=== PATIENT | female | born 1970 | race Caucasian/White ===

== ENCOUNTER 2018-04-17 11:06 | Emergency (ER) | payer OTHER ==
[2018-04-17 11:19] VITALS: BP 154/65; PULSE 77; TEMP 98.2; BMI 54.8
--- NOTE | 2018-04-17 12:12 | PDOC ---
History of Present Illness - General Chief Complaint: Chest Pain Stated Complaint: CHEST PAIN - History of Present Illness Initial Comments: Justina Retana is a 48yo woman with a PMH of a-fib and anxiety/depression who presents with sensation of fluttering just above the sternal notch this morning. She states that this feeling started around 10am, and she was very concerned that it was her a-fib. She does also noted that she has anxiety, and when she first noticed the fluttering she became very anxious. She took 2 clonapin with some improvement in her anxiety but continued to have the fluttering sensation. Ms Retana does have a prior episode of a-fib w/ RVR and was concerned that was causing the fluttering. Ms Retana denies any shortness of breath, chest pain, change in medication, fever /chills, diaphoresis, dizziness, or other associated symptoms. She states that this feeling was similar to her palpitations from a-fib, but that has previously been mid-sternal and this was much higher in location. She states that she cannot tell whether she is feeling anxiety or palpitations, and she has no way to check at home. Past History - Past Medical History Allergies/Adverse Reactions: Allergies Allergy/AdvReac Type Severity Reaction Status Date / Time Sulfa (Sulfonamide Allergy Mild Verified 04/17/18 11:18 Antibiotics) Coconut Allergy Uncoded 04/17/18 11:18 sulfa AdvReac Uncoded 04/17/18 11:18 Home Medications: Ambulatory Orders Sertraline HCl [Zoloft -] 50 mg PO DAILY 04/25/13 Dronedarone HCl [Multaq] 400 mg PO BID #60 tablet 04/27/13 Diltiazem HCl [Cardizem LA] 240 mg PO DAILY #30 tab.sr.24h 12/18/13 Aspirin [ASA -] 81 mg PO DAILY 06/06/16 clonazePAM [KlonoPIN] 0.5 mg PO DAILY PRN 06/06/16 Anemia: No Asthma: Yes Cancer: No Cardiac Disorders: Yes (a-fib) CVA: No COPD: No CHF: No Dementia: No Diabetes: No GI Disorders: Yes (CELIAC?) Disorders: Yes (URINARY REFLUX REPAIR R) HTN: No Hypercholesterolemia: No Liver Disease: No Psychiatric Problems: Yes (anxiety, depression) Seizures: No Thyroid Disease: No Other medical history: maryse [place] - Surgical History Abdominal Surgery: No Appendectomy: No Cardiac Surgery: No Cholecystectomy: Yes Lung Surgery: No Neurologic Surgery: No Orthopedic Surgery: No - Immunization History Immunization Up to Date: Yes - Suicide/Smoking/Psychosocial Hx Smoking History: Never smoked Have you smoked in the past 12 months: No If you are a former smoker, when did you quit?: 18 years ago Hx Alcohol Use: No Drug/Substance Use Hx: No Substance Use Type: None Hx Substance Use Treatment: No Review of Systems - Review of Systems Comments:: General: No fevers, no chills, no weight or appetite change, no malaise HEENT: No changes in vision, no changes in hearing, no congestion, no sore throat CV: No chest pain, +palpitations, no LE edema Pulm: No SOB, no cough, no wheezing GI: No nausea or vomiting, no change in bowel habits, no melena : No frequency, no urgency, no dysuria Musc: No back pain, no joint swelling, no recent injury Skin: No rash, no lesions, no erythema Endo: No excessive thirst, no heat/cold intolerance Heme: No unusual bruising or bleeding, no swollen glands Neuro: No syncope, no numbness/tingling, no focal weakness Vasc: No claudication Psych: No recent change in mood, no SI or HIj. +frequent anxiety *Physical Exam - Vital Signs Last Vital Signs Temp Pulse Resp BP Pulse Ox 98.2 F 77 18 154/65 99 04/17/18 11:16 04/17/18 11:16 04/17/18 11:16 04/17/18 11:16 04/17/18 11:16 - Physical Exam Comments: General: Comfortable, no acute distress, obese, appears stated age HEENT: PERRL, EOMI, MMM, voice normal, normal neck ROM, no LAD Cards: RRR, no murmur appreciated, no TTP on chest wall Pulm: Comfortable on room air, clear to auscultation bilaterally Abd: Soft, nontender, nondistended : No CVA tenderness Ext: Atraumatic. No LE edema. ROM intact. Strength 5/5 and equal bilaterally Vasc: Extremities WWP. Skin: Normal color, no rashes or lesions Neuro: A&Ox3, CN grossly intact, normal speech, motor/sensory grossly intact and symmetric Psych: Mood appropriate to situation Moderate Sedation - Procedure Monitoring Vital Signs: Procedure Monitoring Vital Signs Temperature 98.2 F 04/17/18 11:16 Pulse Rate 77 04/17/18 11:16 Respiratory Rate 18 04/17/18 11:16 Blood Pressure 154/65 04/17/18 11:16 O2 Sat by Pulse Oximetry (%) 99 04/17/18 11:16 ED Treatment Course - LABORATORY CBC & Chemistry Diagram: 04/17/18 12:29 04/17/18 12:29 Medical Decision Making - Medical Decision Making 04/17/18 12:09 Justina Retana is a 48yo woman with a PMH of a-fib and anxiety/depression who presents with sensation of fluttering just above the sternal notch this morning. She was concerned that she was in a-fib w/ RVR and presented for evaluation. - In NSR with HR in 70's during exam, no abnormalities noted on exam - EKG completed on arrival. In NSR w/ HR 81, normal axis, no ST changes - Given cardiac history and complaint of chest discomfort, will check CBC, CMP, mag, phos, trop to r/o cardiac pathology - Reports cough, daughter w/ URI. Will order CXR to r/o infections causes of discomfort 04/17/18 13:18 - Labs reviewed, no concerns - CXR to be completed 04/17/18 13:54 - Pt feels improved, reassured by labs and EKG. Feels ready to go home at this point - Plan to cancel CXR as Ms Retana is feeling better, no continued cough or concern for acute abnormality on xray - Will discharge home with PMD follow up Discussed with Dr Martin. Ursula Talley PGY1 *DC/Admit/Observation/Transfer Diagnosis at time of Disposition: Palpitations - Discharge Dispostion Disposition: HOME Condition at time of disposition: Stable Decision to Admit order: No - Referrals Referrals: Rayo Yanes [Primary Care Provider] - - Patient Instructions Printed Discharge Instructions: DI for Palpitations Additional Instructions: Discharge Instructions: - You were seen in the emergency department for palpitations. - You had blood tests and a heart test (EKG) which were all normal. Your heart was beating at a normal rate and rhythm. There was no sign of atrial fibrillation while you were in the emergency department. - Continue to take all of your medications as previously prescribed - Make an appointment to see your regular doctor within the next week for follow up. You may wish to also see your publishing specialist if you are concerned about your diagnosis of a-fib, but all of your tests were normal while at the hospital. - Seek immediate medical care if you have continued palpitations, racing heart, chest pain, shortness of breath, or any other medical emergency. - Post Discharge Activity
[2018-04-17 12:43] LABS: BASO % 0.7 % (0-2.0); EOS % 0.4 % (0-4.5); HEMATOCRIT 37.6 % (32.4-45.2); HEMOGLOBIN 12.7 GM/dL (10.7-15.3); LYMPH % 14.8 % (8-40); MCH 28.1 pg (25.7-33.7); MCHC 33.7 g/dl (32.0-36.0); MEAN CELL VOLUME 83.4 fl (80-96); MEAN PLT VOLUME 8.3 fl (7.5-11.1); MONO % 5.5 % (3.8-10.2); NEUT % 78.6 % (42.8-82.8); PLATELET COUNT 308 K/MM3 (134-434); RBC 4.51 M/mm3 (3.60-5.2); RDW 13.8 % (11.6-15.6); WHITE BLOOD COUNT 9.1 K/mm3 (4.0-10.0)
[2018-04-17 13:15] LABS: ALK PHOS 90 U/L (45-117); ANION GAP 9 MMOL/L (8-16); BILIRUBIN,TOTAL 0.4 mg/dL (0.2-1); BLOOD UREA NITROGEN 16 mg/dL (7-18); CALCIUM 8.6 mg/dL (8.5-10.1); CHLORIDE 106 mmol/L (98-107); CO2 26 mmol/L (21-32); GLUCOSE,RANDOM 103 mg/dL (74-106); MAGNESIUM 1.8 mg/dL (1.8-2.4); PHOSPHOROUS 3.3 mg/dL (2.5-4.9); POTASSIUM 4.5 mmol/L (3.5-5.1); SGOT/AST 28 U/L (15-37); SGPT/ALT 17 U/L (13-61); SODIUM 141 mmol/L (136-145); TOT PROT 7.1 g/dl (6.4-8.2)
--- NOTE | 2018-04-17 13:58 | PDOC ---
Attending Attestation - Resident Resident Name: GerriUrsula - ED Attending Attestation I have performed the following: I have examined & evaluated the patient, The case was reviewed & discussed with the resident, I agree w/resident's findings & plan, Exceptions are as noted - HPI HPI: 04/17/18 14:02 The patient is a 48 year old female, with a significant past medical history of anxiety and pAfib, who presents to the emergency department with palpitations. Pt states that she felt a "flutter" in her upper chest this morning. The episode started about 11AM and lasted until just after she arrived to the ER. Pt denies any chest pain or pressure. Denies SOB. Pt states that she has this sensation every time she is in afib but also gets a similar sensation whenever she gets anxious. Pt took two klonopin prior to arrival and now feels much better. She denies recent fevers, chills, headache or dizziness. She denies recent nausea, vomit, diarrhea or constipation. She denies recent dysuria, frequency, urgency or hematuria. Pt states that she is currently asymptomatic. Allergies: Sulfa, coconut Past surgical history: None reported. Primary Care Physician: Dr. Yanes 04/17/18 14:04 - Physicial Exam PE: 04/17/18 14:04 "GENERAL: Awake, alert, and fully oriented, in no acute distress. HEAD: No signs of trauma EYES: PERRLA, EOMI, sclera anicteric, conjunctiva clear ENT: Auricles normal inspection, hearing grossly normal, nares patent, oropharynx clear without exudates. Moist mucosa NECK: Nontender, no stepoffs, Normal ROM, supple, no lymphadenopathy, JVD, or masses LUNGS: Breath sounds equal, clear to auscultation bilaterally. No wheezes, and no crackles HEART: Regular rate and rhythm, normal S1 and S2, no murmurs, rubs or gallops ABDOMEN: Soft, nontender, normoactive bowel sounds. No guarding, no rebound. No masses EXTREMITIES: Normal range of motion, no edema. No clubbing or cyanosis. No cords, erythema, or tenderness NEUROLOGICAL: Cranial nerves II through XII intact. 5/5 strength and sensation in all extremities, Normal speech, normal gait, normal cerebellar function SKIN: Warm, Dry, normal turgor, no rashes or lesions noted. - Medical Decision Making 04/17/18 14:04 48 F with palpitations this morning, now resolved. EKG shows NSR with no evidence of arrhythmia or ischemia. Suspect anxiety vs pAfib that converted spontaneously. - Labs wnl Pt is well appearing, with normal vitals. Clinically stable for DC at this time. I discussed the physical exam findings, ancillary test results and final diagnoses with the patient. I answered all of the patient's questions. The patient was satisfied with the care received and felt comfortable with the discharge plan and treatment plan. The patient agrees to follow up with the primary care physician within 24-72 hours.
--- NOTE | 2018-04-17 18:29 | EKG ---
Test Reason : Blood Pressure : / mmHG Vent. Rate : 081 BPM Atrial Rate : 081 BPM P-R Int : 154 ms QRS Dur : 094 ms QT Int : 402 ms P-R-T Axes : 062 031 047 degrees QTc Int : 466 ms NORMAL SINUS RHYTHM WITH SINUS ARRHYTHMIA NORMAL ECG WHEN COMPARED WITH ECG OF 06-JUN-2016 14:43, NO SIGNIFICANT CHANGE WAS FOUND Confirmed by CAMERON CHRISTIAN MD ([id number]) on 04/17/2018 6:29:21 PM Referred By: Confirmed By:CAMERON CHRISTIAN MD
== END 2018-04-17 14:05 | disposition home or self-care (01) ==
LOC: JER 11:06
DX: I48.91 Unspecified atrial fibrillation (principal); R00.2 Palpitations; F41.8 Other specified anxiety disorders; F32.9 Major depressive disorder, single episode, unspecified; Z87.19 Personal history of other diseases of the digestive system
CPT/HCPCS: 36415; 80053; 83735; 84100; 84484; 85025; 93005; 93010; 99283-25

== ENCOUNTER 2018-05-22 06:00 | Observation (INO) | payer OTHER ==
[2018-05-22] MEDS ORDERED: dilTIAZem HCL 50 MG/10 ML - 10 ML VIAL IVPUSH ONE ×2 (06:27→06:55)
[2018-05-22 06:35] LABS: BASO % 1.6 % (0-2.0); EOS % 0.1 % (0-4.5); HEMATOCRIT 37.6 % (32.4-45.2); HEMOGLOBIN 12.8 GM/dL (10.7-15.3); LYMPH % 21.2 % (8-40); MCH 28.4 pg (25.7-33.7); MCHC 34.1 g/dl (32.0-36.0); MEAN CELL VOLUME 83.1 fl (80-96); MEAN PLT VOLUME 7.7 fl (7.5-11.1); MONO % 4.8 % (3.8-10.2); NEUT % 72.3 % (42.8-82.8); PLATELET COUNT 329 K/MM3 (134-434); RBC 4.52 M/mm3 (3.60-5.2); RDW 13.8 % (11.6-15.6)
[2018-05-22] MEDS ORDERED: dilTIAZem HCL 50 MG/10 ML - 10 ML VIAL ONE (06:38)
[2018-05-22 06:50] VITALS: BMI 64.5
--- NOTE | 2018-05-22 06:51 | PDOC ---
History of Present Illness - General Chief Complaint: Irregular Heart Beat Stated Complaint: VOMITING,COMPLICATIONS Time Seen by Provider: 05/22/18 06:26 History Source: Patient Exam Limitations: No Limitations - History of Present Illness Initial Comments: Pt is a 48 yo F, with PMH of A-fib (past episodes of RVR, last episode June 2017), asthma, and anxiety, who is presenting with palpitations since 1 am this morning. Pt states she ate a slice of pizza late in the evening, which gave her a feeling of indigestion. Starting around 1 am, she noticed palpitations, and took her home dose of cardizem (240 mg PO), which did not relieve the palpitations. She then had 2 episodes of NBNB vomiting, with no associated chest pain or diaphoresis. She currently complains only of palpitations. Pt denies any recent fevers/chills, headache, vision changes, syncope, chest pain, SOB, abdominal pain, urinary symptoms, diarrhea/constipation, or leg swelling. Social: Pt denies any cigarette, alcohol, or drug use. Pt denies any recent travel or sick contacts. Surgical: cholecystectomy, ureter reflux repair (childbirth) Family: no relevant history. 05/22/18 07:10 Past History - Travel Traveled outside of the country in the last 30 days: No Close contact w/someone who was outside of country & ill: No - Past Medical History Allergies/Adverse Reactions: Allergies Allergy/AdvReac Type Severity Reaction Status Date / Time Sulfa (Sulfonamide Allergy Mild Verified 05/22/18 06:50 Antibiotics) Coconut Allergy Uncoded 05/22/18 06:50 Home Medications: Ambulatory Orders Dronedarone HCl [Multaq] 400 mg PO BID #60 tablet 04/27/13 Diltiazem HCl [Cardizem LA] 240 mg PO DAILY #30 tab.sr.24h 12/18/13 Aspirin [ASA -] 81 mg PO DAILY 06/06/16 clonazePAM [KlonoPIN] 0.5 mg PO DAILY PRN 06/06/16 Escitalopram Oxalate [Lexapro -] 10 mg PO DAILY 05/22/18 Norethindrone-E.estradiol-Iron [Microgestin Fe 1-20 Tablet] 1 each PO DAILY Anemia: No Asthma: Yes Cancer: No Cardiac Disorders: Yes (a-fib) CVA: No COPD: No CHF: No Dementia: No Diabetes: No GI Disorders: Yes (CELIAC?) Disorders: Yes (URINARY REFLUX REPAIR R) HTN: No Hypercholesterolemia: No Liver Disease: No Psychiatric Problems: Yes (anxiety, depression) Seizures: No Thyroid Disease: No - Surgical History Abdominal Surgery: No Appendectomy: No Cardiac Surgery: No Cholecystectomy: Yes Lung Surgery: No Neurologic Surgery: No Orthopedic Surgery: No - Immunization History Immunization Up to Date: Yes - Suicide/Smoking/Psychosocial Hx Smoking History: Unknown if ever smoked Have you smoked in the past 12 months: No If you are a former smoker, when did you quit?: 18 years ago Information on smoking cessation initiated: No Hx Alcohol Use: No Drug/Substance Use Hx: No Substance Use Type: None Hx Substance Use Treatment: No *Physical Exam - Vital Signs Last Vital Signs Temp Pulse Resp BP Pulse Ox 99.6 F 85 18 152/63 95 05/22/18 06:02 05/22/18 06:02 05/22/18 06:02 05/22/18 06:02 05/22/18 06:02 Moderate Sedation - Procedure Monitoring Vital Signs: Procedure Monitoring Vital Signs Temperature 99.6 F 05/22/18 06:02 Pulse Rate 85 05/22/18 06:02 Respiratory Rate 18 05/22/18 06:02 Blood Pressure 152/63 05/22/18 06:02 O2 Sat by Pulse Oximetry (%) 95 05/22/18 06:02 ED Treatment Course - LABORATORY CBC & Chemistry Diagram: 05/22/18 06:29 05/22/18 06:29 - ADDITIONAL ORDERS Additional order review: 05/22/18 06:29 RBC 4.52 MCV 83.1 MCHC 34.1 RDW 13.8 MPV 7.7 Neutrophils % 72.3 Lymphocytes % 21.2 D Monocytes % 4.8 Eosinophils % 0.1 Basophils % 1.6 - Medications Given in the ED: ED Medications Discontinued Medications Generic Name Dose Route Start Last Admin Trade Name Freq PRN Reason Stop Dose Admin Diltiazem HCl 10 mg 05/22/18 06:27 05/22/18 06:40 Cardizem Injection - IVPUSH 05/22/18 06:28 10 mg ONCE ONE Administration Medical Decision Making - Medical Decision Making Pt was seen at bedside, also will be seen by attending Dr. Stubbs. Pt presenting with palpitations since 1 am this morning. Pt states she ate a slice of pizza late in the evening, which gave her a feeling of indigestion. Starting around 1 am, she noticed palpitations, and took her home dose of cardizem (240 mg PO), which did not relieve the palpitations. She then had 2 episodes of NBNB vomiting , with no associated chest pain or diaphoresis. She currently complains only of palpitations. Pt denies any recent fevers/chills, headache, vision changes, syncope, chest pain, SOB, abdominal pain, urinary symptoms, diarrhea/ constipation, or leg swelling. Vitals stable, pt afebrile. Pt in NAD, normal body habitus. PE showed pt alert and oriented. tablet repair generally intact, muscular strength and sensation intact. Eyes PERRLA, EOMI. Oropharynx without erythema or exudates, no LAD b/l. No nasal congestion, hearing intact. Clear heart sounds, S1/S2, no JVD, b/l pedal edema, or heart murmur. Clear lung sounds, no respiratory distress, wheezes, crackles, or accessory muscle use. No abdominal or CVA tenderness to palpation, no rebound, no guarding. Abdomen soft, non-distended, and with normoactive bowel sounds. Skin without jaundice or rash. Considering A-fib RVR 2/2 dehydration, dietary changes/indigestion, stress/ anxiety, infection, electrolyte abnormalities, ACS, . Unlikely PE as O2 saturation 100% on RA, no SOB, no recent surgeries/travel, no leg swelling. Ordered work-up including CBC, CMP, coags, cardiac profile, serum test. Provided 1 L IV NS and 10 mg IV diltiazem for improvement of dehydration and tachycardia. Will continue to reassess pt and monitor for symptomatic improvement. ECG: NSR, intervals WNL. No TWIs or significant ST segment changes. No significant changes from prior ECG. 05/22/18 07:07 *DC/Admit/Observation/Transfer - Referrals Referrals: Marshall Wesley MD [Primary Care Provider] - - Patient Instructions - Post Discharge Activity
[2018-05-22] MEDS ORDERED: SODIUM CHLORIDE 0.9% 500 ML INFUS.BAG IV ONE (06:55)
--- NOTE | 2018-05-22 06:55 | PDOC ---
Attending Attestation - Resident Resident Name: Tequila Shipman - ED Attending Attestation I have performed the following: I have examined & evaluated the patient, The case was reviewed & discussed with the resident, I agree w/resident's findings & plan - HPI HPI: 05/22/18 06:51 Pt comes with rapid afib and a feeling of palpitations in her chest. She is compliant with her cartia QAM and her amiodarone BID. Last night she was late to take her amiodarone, as she was out late. She also didn't eat anything between lunch and midnight. Pt was likely dehydrated and stressed which may have caused her to go into rapid afib. - Physicial Exam PE: 05/22/18 06:53 Afebrile. No Chest pain. Pt has irregularly irreg heart sounds. She has no appreciable murmur (though she tells us that she has one) Pt has no abd pain and no flank pain. No leg swelling and her lungs are clear. - Medical Decision Making 05/22/18 06:54 Pt will be hydrated and treated with diltiazem IV and PO and labs were sent. She will be signed out to the day team. Dr. Juarez is her retail loan originator assistant.
[2018-05-22] MEDS ORDERED: FAMOTIDINE 20 MG/50 ML IVPB 20 MG/50 ML MG IVPB ONE ×2 (07:06→08:16)
[2018-05-22 07:10] LABS: INR 1.02 (0.83-1.09)
[2018-05-22 07:48] LABS: ALBUMIN 3.3 g/dl (3.4-5.0); ALK PHOS 70 U/L (45-117); ANION GAP 8 MMOL/L (8-16); BILIRUBIN,TOTAL 0.2 mg/dL (0.2-1); BLOOD UREA NITROGEN 15 mg/dL (7-18); CHLORIDE 105 mmol/L (98-107); CO2 26 mmol/L (21-32); CREATININE 0.9 mg/dL (0.55-1.3); GLUCOSE,RANDOM 96 mg/dL (74-106); POTASSIUM 4.1 mmol/L (3.5-5.1); SGOT/AST 9 U/L (15-37); SGPT/ALT 19 U/L (13-61); SODIUM 138 mmol/L (136-145); TOT PROT 7.9 g/dl (6.4-8.2)
--- NOTE | 2018-05-22 08:47 | PDOC ---
*Physical Exam - Vital Signs Last Vital Signs Temp Pulse Resp BP Pulse Ox 98.1 F 89 18 155/76 100 05/22/18 08:04 05/22/18 08:04 05/22/18 08:04 05/22/18 08:04 05/22/18 08:04 ED Treatment Course - LABORATORY CBC & Chemistry Diagram: 05/22/18 06:29 05/22/18 06:29 - ADDITIONAL ORDERS Additional order review: Laboratory Results 05/22/18 05/22/18 05/22/18 06:29 06:29 06:29 PT with INR 12.00 INR 1.02 Sodium 138 Potassium 4.1 Chloride 105 Carbon Dioxide 26 Anion Gap 8 BUN 15 Creatinine 0.9 Creat Clearance w eGFR > 60 Random Glucose 96 Calcium 9.0 Total Bilirubin 0.2 AST 9 L ALT 19 Alkaline Phosphatase 70 Creatine Kinase 58 Troponin I < 0.02 Total Protein 7.9 Albumin 3.3 L Serum , Qual Negative 05/22/18 06:29 RBC 4.52 MCV 83.1 MCHC 34.1 RDW 13.8 MPV 7.7 Neutrophils % 72.3 Lymphocytes % 21.2 D Monocytes % 4.8 Eosinophils % 0.1 Basophils % 1.6 - RADIOLOGY Radiology Studies Ordered: Category Date Time Status CXRPORT [CHEST X-RAY PORTABLE*] [RAD] Stat Radiology 05/22/18 08:32 Ordered - Medications Given in the ED: ED Medications Discontinued Medications Generic Name Dose Route Start Last Admin Trade Name Freq PRN Reason Stop Dose Admin Diltiazem HCl 10 mg 05/22/18 06:27 05/22/18 06:40 Cardizem Injection - IVPUSH 05/22/18 06:28 10 mg ONCE ONE Administration Diltiazem HCl 240 mg 05/22/18 06:46 05/22/18 08:44 Cardizem Cd - PO 05/22/18 06:47 240 mg ONCE ONE Administration Diltiazem HCl 10 mg 05/22/18 06:55 05/22/18 07:10 Cardizem Injection - IVPUSH 05/22/18 06:56 10 mg ONCE ONE Administration Famotidine/Sodium Chloride 20 mg in 50 mls @ 100 mls/hr 05/22/18 07:06 08:19 Pepcid 20 Mg Premixed Ivpb - IVPB 05/22/18 07:35 100 mls/hr ONCE ONE Administration Sodium Chloride 1,000 ml 05/22/18 06:55 05/22/18 06:40 Normal Saline - IV 05/22/18 06:56 1,000 ml ONCE ONE Administration Medical Decision Making - Medical Decision Making 05/22/18 08:[address] Shipman. Patient is 48F with history of afib here today with palpitations. HR in 130s, given dilt 10mg iv and home dose of 240mg po. Now stable. Pending labs. CBC, CMP normal. Trop neg. Preg neg. CXR added. EKG shows periods of sinus rhythm with small runs of afib. No st elevations/ depressions. Normal axis. Normal significant t wave abnormalities. HR now in 90s. PC NETWORK TECHNICIAN for Dr Wesley paged, [phone]. *DC/Admit/Observation/Transfer Diagnosis at time of Disposition: Atrial fibrillation with RVR - Discharge Dispostion Condition at time of disposition: Stable Decision to Admit order: Yes - Referrals Referrals: Marshall Wesley MD [Primary Care Provider] - - Patient Instructions - Post Discharge Activity
[2018-05-22] MEDS ORDERED: clonazePAM 0.5 MG TABLET PO PRN (09:34)
[2018-05-22] MEDS ORDERED: ASPIRIN 81 MG CHEWABLE TABLETS ONE (09:51)
[2018-05-22] MEDS ORDERED: ESCITALOPRAM OXALATE 10 MG TABLET (FP) ONE (09:51)
[2018-05-22] MEDS ORDERED: NORETHINDRONE E ESTRADIOL IRON PO SCH (10:00)
[2018-05-22] MEDS ORDERED: ESCITALOPRAM OXALATE 10 MG TABLET (FP) PO SCH (10:00)
[2018-05-22] MEDS ORDERED: DRONEDARONE HCL 400 MG TAB (FP) PO SCH (10:00)
[2018-05-22] MEDS ORDERED: ASPIRIN 81 MG CHEWABLE TABLETS PO SCH (10:00)
--- NOTE | 2018-05-22 10:08 | CON.CARD ---
Consult Consult Specialty:: cardiology - Past Medical History Cardio/Vascular: Yes: AFIB Pulmonary: Yes: Bronchitis ...LMP: 05/19/18 Psych: Yes: Anxiety, Depression, Panic - Past Surgical History Past Surgical History: Yes: Cholecystectomy - Alcohol/Substance Use Hx Alcohol Use: No History of Substance Use: reports: None - Smoking History Smoking history: Unknown if ever smoked Have you smoked in the past 12 months: No If you are a former smoker, when did you quit?: 18 years ago Home Medications - Allergies Allergies/Adverse Reactions: Allergies Allergy/AdvReac Type Severity Reaction Status Date / Time Sulfa (Sulfonamide Allergy Mild Verified 05/22/18 06:50 Antibiotics) Coconut Allergy Uncoded 05/22/18 06:50 - Home Medications Home Medications: Ambulatory Orders Dronedarone HCl [Multaq] 400 mg PO BID #60 tablet 04/27/13 Diltiazem HCl [Cardizem LA] 240 mg PO DAILY #30 tab.sr.24h 12/18/13 Aspirin [ASA -] 81 mg PO DAILY 06/06/16 clonazePAM [KlonoPIN] 0.5 mg PO DAILY PRN 06/06/16 Escitalopram Oxalate [Lexapro -] 10 mg PO DAILY 05/22/18 Norethindrone-E.estradiol-Iron [Microgestin Fe 1-20 Tablet] 1 each PO DAILY Family Disease History - Family Disease History Family Disease History: Other: Grandparent, Mother Vital Signs: Vital Signs Temperature 98.1 F 05/22/18 08:04 Pulse Rate 89 05/22/18 08:04 Respiratory Rate 18 05/22/18 08:04 Blood Pressure 155/76 05/22/18 08:04 O2 Sat by Pulse Oximetry (%) 100 05/22/18 08:04 - Other Data Labs, Other Data: CBC, BMP 05/22/18 06:29 05/22/18 06:29 INR, PTT INR 1.02 (0.83-1.09) 05/22/18 06:29 Troponin, BNP 05/22/18 06:29 Troponin I < 0.02 Troponin, BNP 05/22/18 06:29 Troponin I < 0.02 Problem List - Problems (1) Anxiety disorder Code(s): F41.9 - ANXIETY DISORDER, UNSPECIFIED (2) Morbid obesity Code(s): E66.01 - MORBID (SEVERE) OBESITY DUE TO EXCESS CALORIES (3) PAF (paroxysmal atrial fibrillation) Assessment/Plan: Presently in NSR; EKG shows NSR with frequent APCs. Restart Multaq 400 mg bid. Increase diltiazem CD from 240 to 360 mg daily. Follow by plate and frame filter operator (Dr. Hawthorne); not on systemic anticoagulation. When discharged, will be followed by our office, and for f/u with Dr. Hawthorne for medication adjustment, discussion of possible ablation therapy. F/u TSH. Code(s): I48.0 - PAROXYSMAL ATRIAL FIBRILLATION (4) Palpitation Code(s): R00.2 - PALPITATIONS (5) Panic attack Code(s): F41.0 - PANIC DISORDER [EPISODIC PAROXYSMAL ANXIETY] (6) Hyperlipidemia Assessment/Plan: F/u lipid panel (LDL >140 mg/DL in 2013). Code(s): E78.5 - HYPERLIPIDEMIA, UNSPECIFIED
--- NOTE | 2018-05-22 10:42 | PDOC ---
*Physical Exam - Vital Signs Last Vital Signs Temp Pulse Resp BP Pulse Ox 98.1 F 89 18 155/76 100 05/22/18 08:04 05/22/18 08:04 05/22/18 08:04 05/22/18 08:04 05/22/18 08:04 - Physical Exam General Appearance: Yes: Nourished Respiratory/Chest: positive: Lungs Clear, Normal Breath Sounds Cardiovascular: positive: Regular Rhythm, S1, S2, Irregularly Irregular ED Treatment Course - LABORATORY CBC & Chemistry Diagram: 05/22/18 06:29 05/22/18 06:29 - ADDITIONAL ORDERS Additional order review: Laboratory Results 05/22/18 05/22/18 05/22/18 06:29 06:29 06:29 PT with INR 12.00 INR 1.02 Sodium 138 Potassium 4.1 Chloride 105 Carbon Dioxide 26 Anion Gap 8 BUN 15 Creatinine 0.9 Creat Clearance w eGFR > 60 Random Glucose 96 Calcium 9.0 Total Bilirubin 0.2 AST 9 L ALT 19 Alkaline Phosphatase 70 Creatine Kinase 58 Troponin I < 0.02 Total Protein 7.9 Albumin 3.3 L Serum , Qual Negative 05/22/18 06:29 RBC 4.52 MCV 83.1 MCHC 34.1 RDW 13.8 MPV 7.7 Neutrophils % 72.3 Lymphocytes % 21.2 D Monocytes % 4.8 Eosinophils % 0.1 Basophils % 1.6 - Medications Given in the ED: ED Medications Discontinued Medications Generic Name Dose Route Start Last Admin Trade Name Freq PRN Reason Stop Dose Admin Diltiazem HCl 10 mg 05/22/18 06:27 05/22/18 06:40 Cardizem Injection - IVPUSH 05/22/18 06:28 10 mg ONCE ONE Administration Diltiazem HCl 240 mg 05/22/18 06:46 05/22/18 08:44 Cardizem Cd - PO 05/22/18 06:47 240 mg ONCE ONE Administration Diltiazem HCl 10 mg 05/22/18 06:55 05/22/18 07:10 Cardizem Injection - IVPUSH 05/22/18 06:56 10 mg ONCE ONE Administration Diltiazem HCl 240 mg 05/22/18 10:00 05/22/18 10:00 Cardizem Cd - PO Not Given DAILY MELI Famotidine/Sodium Chloride 20 mg in 50 mls @ 100 mls/hr 05/22/18 07:06 08:19 Pepcid 20 Mg Premixed Ivpb - IVPB 05/22/18 07:35 100 mls/hr ONCE ONE Administration Sodium Chloride 1,000 ml 05/22/18 06:55 05/22/18 06:40 Normal Saline - IV 05/22/18 06:56 1,000 ml ONCE ONE Administration Medical Decision Making - Medical Decision Making 05/22/18 10:40 48 yo f h/o afib, signed out to me at 7 am, awaiting admission to telemtery. pt presents to ED c/o palpitations. was given diltiazem IVP, and oral load prior to my assuming car. at ths time feels improved. on exam awake alert comfortable. rate currently controlled. will admit to tele obs. d/w covering for christopher/ shirley. tele observation. *DC/Admit/Observation/Transfer Diagnosis at time of Disposition: Atrial fibrillation with RVR - Discharge Dispostion Condition at time of disposition: Stable - Referrals - Patient Instructions - Post Discharge Activity
[2018-05-22 11:01] LABS: CHOLESTEROL 227 mg/dL (50-200); HDL CHOLESTEROL 85 mg/dL (40-60); MAGNESIUM 2.3 mg/dL (1.8-2.4); TRIGLYCERIDES 102 mg/dL (0-150)
[2018-05-22 16:49] VITALS: BP 132/69; PULSE 64; TEMP 97.9
--- NOTE | 2018-05-22 20:42 | DS ---
Physical Examination Vital Signs: Vital Signs Temperature 97.9 F 05/22/18 16:48 Pulse Rate 64 05/22/18 16:48 Respiratory Rate 18 05/22/18 16:48 Blood Pressure 132/69 05/22/18 16:48 O2 Sat by Pulse Oximetry (%) 100 05/22/18 16:48 Findings/Remarks: Pt is a 48 yo F, with PMH of A-fib (past episodes of RVR, last episode June 2017), asthma, and anxiety, who is presenting with palpitations since 1 am this morning. Pt states she ate a slice of pizza late in the evening, which gave her a feeling of indigestion. Starting around 1 am, she noticed palpitations, and took her home dose of cardizem (240 mg PO), which did not relieve the palpitations. She then had 2 episodes of NBNB vomiting, with no associated chest pain or diaphoresis. She currently complains only of palpitations. Pt denies any recent fevers/chills, headache, vision changes, syncope, chest pain, SOB, abdominal pain, urinary symptoms, diarrhea/constipation, or leg swelling. Constitutional: Yes: Well Nourished, No Distress, Calm Cardiovascular: Yes: Regular Rate and Rhythm Respiratory: Yes: Regular Gastrointestinal: Yes: Normal Bowel Sounds, Soft, Abdomen, Obese Musculoskeletal: Yes: WNL Extremities: Yes: WNL Edema: No Peripheral Pulses WNL: Yes Neurological: Yes: Alert, Oriented Psychiatric: Yes: Alert, Oriented Labs: CBC, BMP 05/22/18 06:29 05/22/18 06:29 Discharge Summary Reason For Visit: ATRIAL FIBRILLATION W/ RAPID VENTRICULAR RESPONSE Current Active Problems Atrial fibrillation with RVR (Acute) Hyperlipidemia (Acute) Hospital Course: Laboratory Last Values WBC 12.0 K/mm3 (4.0-10.0) H 05/22/18 06:29 RBC 4.52 M/mm3 (3.60-5.2) 05/22/18 06:29 Hgb 12.8 GM/dL (10.7-15.3) 05/22/18 06:29 Hct 37.6 % (32.4-45.2) 05/22/18 06:29 MCV 83.1 fl (80-96) 05/22/18 06:29 MCH 28.4 pg (25.7-33.7) 05/22/18 06:29 MCHC 34.1 g/dl (32.0-36.0) 05/22/18 06:29 RDW 13.8 % (11.6-15.6) 05/22/18 06:29 Plt Count 329 K/MM3 (134-434) 05/22/18 06:29 MPV 7.7 fl (7.5-11.1) 05/22/18 06:29 Absolute Neuts (auto) 8.7 K/mm3 (1.5-8.0) H 05/22/18 06:29 Neutrophils % 72.3 % (42.8-82.8) 05/22/18 06:29 Lymphocytes % 21.2 % (8-40) D 05/22/18 06:29 Monocytes % 4.8 % (3.8-10.2) 05/22/18 06:29 Eosinophils % 0.1 % (0-4.5) 05/22/18 06:29 Basophils % 1.6 % (0-2.0) 05/22/18 06:29 Nucleated RBC % 0 % (0-0) 05/22/18 06:29 PT with INR 12.00 SEC (9.7-13.0) 05/22/18 06:29 INR 1.02 (0.83-1.09) 05/22/18 06:29 Sodium 138 mmol/L (136-145) 05/22/18 06:29 Potassium 4.1 mmol/L (3.5-5.1) 05/22/18 06:29 Chloride 105 mmol/L (98-107) 05/22/18 06:29 Carbon Dioxide 26 mmol/L (21-32) 05/22/18 06:29 Anion Gap 8 MMOL/L (8-16) 05/22/18 06:29 BUN 15 mg/dL (7-18) 05/22/18 06:29 Creatinine 0.9 mg/dL (0.55-1.3) 05/22/18 06:29 Creat Clearance w eGFR > 60 (>60) 05/22/18 06:29 Random Glucose 96 mg/dL (74-106) 05/22/18 06:29 Calcium 9.0 mg/dL (8.5-10.1) 05/22/18 06:29 Magnesium 2.3 mg/dL (1.8-2.4) 05/22/18 06:29 Total Bilirubin 0.2 mg/dL (0.2-1) 05/22/18 06:29 AST 9 U/L (15-37) L 05/22/18 06:29 ALT 19 U/L (13-61) 05/22/18 06:29 Alkaline Phosphatase 70 U/L (45-117) 05/22/18 06:29 Creatine Kinase 58 U/L (26-192) 05/22/18 06:29 Troponin I < 0.02 ng/ml (0.00-0.05) 05/22/18 06:29 Total Protein 7.9 g/dl (6.4-8.2) 05/22/18 06:29 Albumin 3.3 g/dl (3.4-5.0) L 05/22/18 06:29 Triglycerides 102 mg/dL (0-150) 05/22/18 06:29 Cholesterol 227 mg/dL (50-200) H 05/22/18 06:29 Total LDL Cholesterol 124 mg/dL (5-100) H 05/22/18 06:29 HDL Cholesterol 85 mg/dL (40-60) H 05/22/18 06:29 TSH 2.49 uIU/ml (0.358-3.74) 05/22/18 06:29 Serum , Qual Negative 05/22/18 06:29 Condition: Stable - Instructions Referrals: Marshall Wesley MD [Primary Care Provider] - Disposition: HOME - Home Medications Comprehensive Discharge Medication List: Ambulatory Orders Dronedarone HCl [Multaq] 400 mg PO BID #60 tablet 04/27/13 Aspirin [ASA -] 81 mg PO DAILY 06/06/16 clonazePAM [KlonoPIN] 0.5 mg PO DAILY PRN 06/06/16 Diltiazem Cd [Cardizem Cd -] 240 mg PO DAILY cap.cd.24h 05/22/18 Diltiazem Cd [Cardizem Cd -] 360 mg PO DAILY #30 cap.cd.24h 05/22/18 Escitalopram Oxalate [Lexapro -] 10 mg PO DAILY 05/22/18 Norethindrone-E.estradiol-Iron [Microgestin Fe 1-20 Tablet] 1 each PO DAILY
--- NOTE | 2018-05-22 22:05 | EKG ---
Test Reason : Blood Pressure : / mmHG Vent. Rate : 111 BPM Atrial Rate : 075 BPM P-R Int : 134 ms QRS Dur : 076 ms QT Int : 354 ms P-R-T Axes : 075 006 017 degrees QTc Int : 481 ms SINUS RHYTHM WITH PREMATURE ATRIAL COMPLEXES OTHERWISE NORMAL ECG WHEN COMPARED WITH ECG OF 17-APR-2018 11:14, PREMATURE ATRIAL COMPLEXES ARE NOW PRESENT Confirmed by CAMERON CHRISTIAN MD ([id number]) on 05/22/2018 10:05:14 PM Referred By: Confirmed By:CAMERON CHRISTIAN MD
== END 2018-05-22 16:54 | disposition home or self-care (01) ==
LOC: JER 06:00 → JERBED 08:50
PROVIDERS: ADMIT Family Medicine; ATTEND Family Medicine
PROC: 3E033GC Introduction of Other Therapeutic Substance into Peripheral Vein, Percutaneous Approach (ICD-10-PCS; principal; 2018-05-22)
PROC: 3E0337Z Introduction of Electrolytic and Water Balance Substance into Peripheral Vein, Percutaneous Approach (ICD-10-PCS; 2018-05-22)
DX: I48.0 Paroxysmal atrial fibrillation (principal); R00.2 Palpitations; F41.9 Anxiety disorder, unspecified; F41.0 Panic disorder [episodic paroxysmal anxiety]; E78.5 Hyperlipidemia, unspecified; J45.909 Unspecified asthma, uncomplicated; E66.01 Morbid (severe) obesity due to excess calories; Z68.44 Body mass index [BMI] 60.0-69.9, adult; Z79.82 Long term (current) use of aspirin; Z88.2 Allergy status to sulfonamides
CPT/HCPCS: 36415; 71045-TC-FY; 80053; 80061; 82550; 83721; 83735; 84443; 84484; 84703; 85025; 85610; 93005; 93010; 99285-25; G0378

== ENCOUNTER 2019-12-16 20:17 | Emergency (ER) | payer OTHER ==
--- NOTE | 2019-12-16 20:32 | PDOC ---
History of Present Illness - General Stated Complaint: DIZZINESS Time Seen by Provider: 12/16/19 20:31 - History of Present Illness Initial Comments: 12/16/19 22:43 49yo F w/ hx of AFib presents w/ one episode of dizziness after dinner tonight. She went to stand up and felt herself get lightheaded. She sat down promptly, but the dizziness lasted for a few minutes. It was not associated w/ n/v or hearing changes. It was not associated with palpitations or chest pain. She knows when she goes into AFib, and she did not get any of those feelings. She di d not lose consciousness, and she did not fall. She does endorse blurry vision that has since resolved. She endorses a recent post-nasal drip that has persisted [id number]. Past History - Medical History Allergies/Adverse Reactions: Allergies Allergy/AdvReac Type Severity Reaction Status Date / Time Sulfa (Sulfonamide Allergy Mild Verified 05/22/18 06:50 Antibiotics) Coconut Allergy Uncoded 05/22/18 06:50 Home Medications: Ambulatory Orders Dronedarone HCl [Multaq] 400 mg PO BID #60 tablet 04/27/13 Aspirin [ASA -] 81 mg PO DAILY 06/06/16 clonazePAM [KlonoPIN] 0.5 mg PO DAILY PRN 06/06/16 Diltiazem Cd [Cardizem Cd -] 240 mg PO DAILY cap.cd.24h 05/22/18 Diltiazem Cd [Cardizem Cd -] 360 mg PO DAILY #30 cap.cd.24h 05/22/18 Escitalopram Oxalate [Lexapro -] 10 mg PO DAILY 05/22/18 Norethindrone-E.estradiol-Iron [Microgestin Fe 1-20 Tablet] 1 each PO DAILY 05/22/18 Anemia: No Asthma: Yes Cancer: No Cardiac Disorders: Yes (a-fib) CVA: No COPD: No CHF: No Dementia: No Diabetes: No GI Disorders: Yes (CELIAC?) Disorders: Yes (URINARY REFLUX REPAIR R) HTN: No Hypercholesterolemia: No Liver Disease: No Psychiatric Problems: Yes (anxiety, depression) Seizures: No Thyroid Disease: No - Surgical History Abdominal Surgery: No Appendectomy: No Cardiac Surgery: No Cholecystectomy: Yes Lung Surgery: No Neurologic Surgery: No Orthopedic Surgery: No - Immunization History Immunization Up to Date: Yes - Psycho-Social/Smoking History Smoking History: Unknown if ever smoked Have you smoked in the past 12 months: No If you are a former smoker, when did you quit?: 18 years ago Review of Systems - Review of Systems Able to Perform ROS?: Yes Constitutional: No: Chills, Diaphoresis, Fever, Loss of Appetite, Weakness HEENTM: Yes: Blurred Vision. No: Recent change in vision, Throat Swelling, Difficulty Swallowing Respiratory: No: Cough, Shortness of Breath, Wheezing, Productive cough Cardiac (ROS): Yes: Lightheadedness. No: Chest Pain, Edema, Palpitations, Sy ncope ABD/GI: No: Abdominal Distended, Constipated, Diarrhea, Nausea, Vomiting : No: Burning, Dysuria, Discharge, Hematuria Musculoskeletal: No: Back Pain, Muscle Weakness Integumentary: No: Bruising, Rash Neurological: Yes: Dizziness. No: Headache, Tingling Psychiatric: No: Change in Appetite Endocrine: No: Symptoms Reported Hematologic/Lymphatic: No: Symptoms Reported All Other Systems: Reviewed and Negative *Physical Exam - Physical Exam General Appearance: Yes: Nourished, Appropriately Dressed. No: Apparent Distress HEENT: positive: EOMI, Normal ENT Inspection Neck: positive: Trachea midline, Supple. negative: Tender Respiratory/Chest: positive: Lungs Clear, Normal Breath Sounds. negative: Chest Tender, Respiratory Distress Cardiovascular: positive: Regular Rhythm, Regular Rate Gastrointestinal/Abdominal: positive: Normal Bowel Sounds, Soft Musculoskeletal: positive: Normal Inspection. negative: CVA Tenderness Extremity: positive: Normal Capillary Refill, Normal Inspection, Normal Range of Motion Integumentary: positive: Normal Color, Dry, Warm Neurologic: positive: joint special operations II-XII NML intact, Fully Oriented, Alert, Normal Mood/Affect, Normal Response, Motor Strength 5/5, Responsive, Finger to Nose (correctly done). negative: Numbness, Sensory Deficit Heart Score/ECG Review - History History: Slightly suspicious - Age Age: 45-65 - Risk Factors Risk Factors Heart Score: Yes Hx Hypercholesterolemia, No Hx Hypertension, No Hx Diabetes, No Smoking History, Yes Hx Obesity Based on the list above the patient has:: 1-2 risk factors - Troponin Troponin: </= normal limit - ECG Intrepretation Rhythm: Regular Rhythm - Holcomb Holcomb: Normal - QRS Poor R Wave Progression: No Q Wave Present: No - ST and T Early Repolarization: No - ECG Impressions Normal ECG: Yes Bradycardia: No Torsades mike Pointes: No WPW: No ED Treatment Course - LABORATORY CBC & Chemistry Diagram: 12/16/19 21:58 12/16/19 21:58 - RADIOLOGY Radiograph Interpretation: THIS IS A PRELIMINARY REPORT DATE OF SERVICE: 2019-12-17 00:44:55 IMAGES: [id number] EXAM: CT CHEST WITH CONTRAST 7 mm nodule RUL, advise followup according to established criteria. 4 mm nodule versus artifact RLL. No pulmonary embolism. No aortic dissection or aneurysm. No pneumonia or pleural effusions. Coronary artery calcifications. Cholecystectomy. One or more of the following dose reduction techniques were used: automated exposure control, adjustment of the mA and/or kV according to patient size, use of iterative reconstructive technique. THIS DOCUMENT HAS BEEN ELECTRONICALLY SIGNED CONFIDENTIALITY NOTICE: This information is intended only for the use of the recipient(s) named above. If you are not the intended recipient, or a person responsible for delivering it to the intended recipient, you are hereby notified that any disclosure, copying, distribution or use of any of the information contained in or attached to this transmission is STRICTLY PROHIBITED. If you have received this transmission in error, please immediately notify Imaging Maintenance Planning Clerk and destroy the original transmission and its attachments without saving them in any manner Please call 19/10 Support: [phone] ([phone]) with questions. Patient Information: : 1970 Order Type: Preliminary Name: SELENA DIXON Sex: F Study Description: CT CTA CHEST Modality: CT Location: [facility] Referring Physician: LUIS FERNANDO Aponte M.D. 12/17/2019 01:36 BEULAH Hardin Please call Imaging Maintenance Planning Clerk .[phone] ([phone]) with questions. Nubia Aponte MD 12/17/19 12:18 Medical Decision Making - Medical Decision Making 12/17/19 12:18 49yo F w/ hx of AF well controlled and followed by Dr. Juarez presents w/ on e episode of lightnheadedness, now mostly resolved. DDx: dysrrhythmia, TIA, vasovagal, PE, hypoglycemia, hypovolemia Obese, on exogenous estrogen, and a h/o of AF not on AC -> will obtain dimer -> Dimer + to 890 -> will order LE duplex + CTA study poor oral intake day of presentation. however, sx resolved without food -> hypoglycemia or hypovolemia lower on DDX but will obtain CMP for lytes, and blood glucose. normal neuro exam, no focal deficits, not hypertensive -> CVA/TIA lower on DDx. will hold off on head CT. normal EKG, negative troponin, no CP -> cardiac etiology lower on DDx Discharge - Discharge Information Problems reviewed: Yes Clinical Impression/Diagnosis: Dizziness Condition: Stable Disposition: HOME - Follow up/Referral Referrals: Rayo Yanes [Primary Care Provider] - - Patient Discharge Instructions Additional Instructions: You were provided copies of the CT and Ultrasound reports. We reviewed findings that should be brought to your Primary Care Doctor's attention. Follow up with your Primary Care Doctor in the next 10 days for your symptoms. Return to the Emergency Department if you experience new or worsening symptoms. - Post Discharge Activity
--- OUTSIDE RECORDS SUMMARY | 2019-12-16 21:25 | XMS ---
:1970 Author Organization [facility] Support Name Relationship Address Phone [facility] Unavailable [address] [facility] [phone] [place] [address] QUIN MILLER MOTHER [address] [place] [address] Re-disclosure Warning The records that you are about to access may contain information from federally- assisted alcohol or drug abuse programs. If such information is present, then the following federally mandated warning applies: This information has been disclosed to you from records protected by federal confidentiality rules (42 CFR part 2). The federal rules prohibit you from making any further disclosure of this information unless further disclosure is expressly permitted by the written consent of the person to whom it pertains or as otherwise permitted by 42 CFR part 2. A general authorization for the release of medical or other information is NOT sufficient for this purpose. The Federal rules restrict any use of the information to criminally investigate or prosecute any alcohol or drug abuse patient.The records that you are about to access may contain highly sensitive health information, the redisclosure of which is protected by Article 27-F of the [facility] Public Health law. If you continue you may haveaccess to information: Regarding HIV / AIDS; Provided by facilities licensed or operated by the [facility] Office of Mental Health; or Provided by the [facility] Office for People With Developmental Disabilities. If such information is present, then the following [facility] mandated warning applies: This information has been disclosed to you from confidential records which are protected by state law. State law prohibits you from making any further disclosure of this information without the specific written consent of the person to whom it pertains, or as otherwise permitted by law. Any unauthorized further disclosure in violation of state law may result in a fine or residential sentence or both. A general authorization for the release of medical or other information is NOT sufficient authorization for further disclosure. Insurance Providers Payer name Policy type / Policy ID Covered Covered alliance party's Policy Plan Coverage type alliance party ID relationship to Elizabeth Information elizabeth ROSATLORI O [id number] Results ID Date Data Source [id number] 11/06/2019 06:03:00 PM EDT [facility] Name Value Range Interpretation Code Description Data Gerda rce(s) Supporting Document(s ) SARS-COV-2 [facility] QL LIS+PROBE This lab was ordered by QUAN lott nd reported by [facility]. Procedure
[2019-12-16 22:06] VITALS: BP 122/61; PULSE 70; TEMP 98.2; BMI 53.1
[2019-12-16 22:17] LABS: BASO % 1.2 % (0-2.0); EOS % 0.6 % (0-4.5); HEMATOCRIT 35.1 % (32.4-45.2); HEMOGLOBIN 11.8 GM/dL (10.7-15.3); LYMPH % 16.5 % (8-40); MCH 28.5 pg (25.7-33.7); MCHC 33.5 g/dl (32.0-36.0); MEAN PLT VOLUME 9.2 fl (7.5-11.1); MONO % 5.9 % (3.8-10.2); NEUT % 75.8 % (42.8-82.8); PLATELET COUNT 257 K/MM3 (134-434); RBC 4.13 M/mm3 (3.60-5.2); RDW 13.3 % (11.6-15.6); WHITE BLOOD COUNT 11.5 K/mm3 (4.0-10.0)
[2019-12-16 22:36] LABS: ALK PHOS 92 U/L (45-117); ANION GAP 5 MMOL/L (8-16); BILIRUBIN,TOTAL 0.2 mg/dL (0.2-1); CALCIUM 8.6 mg/dL (8.5-10.1); CHLORIDE 106 mmol/L (98-107); CO2 29 mmol/L (21-32); CREATININE 0.9 mg/dL (0.55-1.3); GLUCOSE,RANDOM 110 mg/dL (74-106); POTASSIUM 4.5 mmol/L (3.5-5.1); SGOT/AST 23 U/L (15-37); SGPT/ALT 24 U/L (13-61); SODIUM 139 mmol/L (136-145); TOT PROT 7.1 g/dl (6.4-8.2)
[2019-12-16 22:40] LABS: ALBUMIN 2.9 g/dl (3.4-5.0); BLOOD UREA NITROGEN 15.4 mg/dL (7-18)
--- NOTE | 2019-12-16 23:27 | PDOC ---
Documentation entered by Haley Lindsey SCRIBE, acting as scribe for Sabrina Rizo MD. Sabrina Rizo MD: This documentation has been prepared by the cameronibCésar shukla Lincy, SCRIBE, under my direction and personally reviewed by me in its entirety. I confirm that the documentation accurately reflects all work, treatment, procedures, and medical decision making performed by me. Attending Attestation - Resident Resident Name: NevinEstiven Nichol - HPI HPI: 12/16/19 22:39 The patient is a 49-year-old female with a past medical history significant for Afib, asthma, and anxiety who presents to the emergency department with lightheadedness. The patient reports she had a transient episode of lightheadedness today, associated with weakness. Denies fever, chills, nausea, vomiting, chest pain, shortness of breath, palpitations. Denies falls or head injury. The patient is currently asymptomatic. - Physicial Exam PE: 12/16/19 22:39 GENERAL: Awake, alert, and fully oriented, in no acute distress LUNGS: Breath sounds equal, clear to auscultation bilaterally. HEART: Regular rate and rhythm. ABDOMEN: +obese. Soft, nontender, nondistended. EXTREMITIES: (+) 1+ pitting edema to the knees bilaterally. Normal range of motion. - Medical Decision Making 12/16/19 22:49 Pt presents to the ED complaining of a brief episode of lightheadness that lasted minutes and spontaneously resolved. History of a fib and obesity. No evidence of arrythmia on ekg. Given history of exogenous estrogen use, PE is on the differential, although suspicion is low. D dimer is elevated. Will plan for duplex and CT angio. 12/16/19 23:26 Discharge - Discharge Information Problems reviewed: Yes Clinical Impression/Diagnosis: Dizziness Condition: Stable Disposition: HOME - Follow up/Referral Referrals: Rayo Yanes [Primary Care Provider] - - Patient Discharge Instructions Additional Instructions: You were provided copies of the CT and Ultrasound reports. We reviewed findings that should be brought to your Primary Care Doctor's attention. Follow up with your Primary Care Doctor in the next 10 days for your symptoms. Return to the Emergency Department if you experience new or worsening symptoms. - Post Discharge Activity
[2019-12-16 23:38] LABS: INR 1.06 (0.83-1.09); PROTHROMBIN TIME (PATIENT) 12.5 SEC (9.7-13.0)
[2019-12-16 23:41] LABS: ACTIVATED PTT 28.3 SECONDS (25.2-36.5)
--- NOTE | 2019-12-17 01:42 | PDOC ---
*Physical Exam - Vital Signs Last Vital Signs Temp Pulse Resp BP Pulse Ox 98.2 F 70 18 122/61 99 12/16/19 21:16 12/16/19 21:16 12/16/19 21:16 12/16/19 21:16 12/16/19 21:16 ED Treatment Course - LABORATORY CBC & Chemistry Diagram: 12/16/19 21:58 12/16/19 21:58 - ADDITIONAL ORDERS Additional order review: Laboratory Results 12/17/19 12/16/19 12/16/19 00:44 22:30 22:30 PT with INR 12.50 INR 1.06 PTT (Actin FS) 28.3 D-Dimer 897 H Sodium Potassium Chloride Carbon Dioxide Anion Gap BUN Creatinine Est GFR (CKD-EPI)AfAm Est GFR (CKD-EPI)NonAf Random Glucose Calcium Total Bilirubin AST ALT Alkaline Phosphatase Creatine Kinase Troponin I Total Protein Albumin Serum , Qual Negative 12/16/19 12/16/19 12/16/19 21:58 21:58 21:58 PT with INR Cancelled INR Cancelled PTT (Actin FS) Cancelled D-Dimer Cancelled Sodium 139 Potassium 4.5 Chloride 106 Carbon Dioxide 29 Anion Gap 5 L BUN 15.4 Creatinine 0.9 Est GFR (CKD-EPI)AfAm 87.02 Est GFR (CKD-EPI)NonAf 75.08 Random Glucose 110 H Calcium 8.6 Total Bilirubin 0.2 AST 23 ALT 24 Alkaline Phosphatase 92 Creatine Kinase 102 Troponin I < 0.02 Total Protein 7.1 Albumin 2.9 L Serum , Qual 12/16/19 21:58 RBC 4.13 MCV 85.0 MCHC 33.5 RDW 13.3 MPV 9.2 D Neutrophils % 75.8 Lymphocytes % 16.5 D Monocytes % 5.9 Eosinophils % 0.6 D Basophils % 1.2 Medical Decision Making - Medical Decision Making 12/17/19 01:42 Patient Name: ZACK WALTERS THIS IS A PRELIMINARY REPORT DATE OF SERVICE: 2019-12-17 00:44:55 IMAGES: [id number] EXAM: CT CHEST WITH CONTRAST 7 mm nodule RUL, advise followup according to established criteria. 4 mm nodule versus artifact RLL. No pulmonary embolism. No aortic dissection or aneurysm. No pneumonia or pleural effusions. Coronary artery calcifications. Cholecystectomy. 12/17/19 02:07 Patient Name: ZACK WALTERS THIS IS A PRELIMINARY REPORT DATE OF SERVICE: 2019-12-17 00:12:11 IMAGES: [id number] EXAM: VENOUS DUPLEX BILATERAL No evidence for DVT bilateral lower extremities. Discharge - Discharge Information Problems reviewed: Yes Clinical Impression/Diagnosis: Dizziness Condition: Stable Disposition: HOME - Follow up/Referral Referrals: Rayo Yanes [Primary Care Provider] - - Patient Discharge Instructions Additional Instructions: You were provided copies of the CT and Ultrasound reports. We reviewed findings that should be brought to your Primary Care Doctor's attention. Follow up with your Primary Care Doctor in the next 10 days for your symptoms. Return to the Emergency Department if you experience new or worsening symptoms. - Post Discharge Activity
--- NOTE | 2019-12-17 01:58 | PDOC ---
*Physical Exam - Vital Signs Last Vital Signs Temp Pulse Resp BP Pulse Ox 98.2 F 70 18 122/61 99 12/16/19 21:16 12/16/19 21:16 12/16/19 21:16 12/16/19 21:16 12/16/19 21:16 ED Treatment Course - LABORATORY CBC & Chemistry Diagram: 12/16/19 21:58 12/16/19 21:58 - ADDITIONAL ORDERS Additional order review: Laboratory Results 12/17/19 12/16/19 12/16/19 00:44 22:30 22:30 PT with INR 12.50 INR 1.06 PTT (Actin FS) 28.3 D-Dimer 897 H Sodium Potassium Chloride Carbon Dioxide Anion Gap BUN Creatinine Est GFR (CKD-EPI)AfAm Est GFR (CKD-EPI)NonAf Random Glucose Calcium Total Bilirubin AST ALT Alkaline Phosphatase Creatine Kinase Troponin I Total Protein Albumin Serum , Qual Negative 12/16/19 12/16/19 12/16/19 21:58 21:58 21:58 PT with INR Cancelled INR Cancelled PTT (Actin FS) Cancelled D-Dimer Cancelled Sodium 139 Potassium 4.5 Chloride 106 Carbon Dioxide 29 Anion Gap 5 L BUN 15.4 Creatinine 0.9 Est GFR (CKD-EPI)AfAm 87.02 Est GFR (CKD-EPI)NonAf 75.08 Random Glucose 110 H Calcium 8.6 Total Bilirubin 0.2 AST 23 ALT 24 Alkaline Phosphatase 92 Creatine Kinase 102 Troponin I < 0.02 Total Protein 7.1 Albumin 2.9 L Serum , Qual 12/16/19 21:58 RBC 4.13 MCV 85.0 MCHC 33.5 RDW 13.3 MPV 9.2 D Neutrophils % 75.8 Lymphocytes % 16.5 D Monocytes % 5.9 Eosinophils % 0.6 D Basophils % 1.2 Medical Decision Making - Medical Decision Making 12/17/19 01:[address] Rooney to f/u CTA and Duplex EXAM: CT CHEST WITH CONTRAST 7 mm nodule RUL, advise followup according to established criteria. 4 mm nodule versus artifact RLL. No pulmonary embolism. No aortic dissection or aneurysm. No pneumonia or pleural effusions. Coronary artery calcifications. Cholecystectomy. One or more of the following dose reduction techniques were used: automated exposure control, adjustment of the mA and/or kV according to patient size, use of iterative reconstructive technique. THIS DOCUMENT HAS BEEN ELECTRONICALLY SIGNED Nubia Aponte M.D. 12/17/2019 01:36 EST Lashawn Please call Imaging Coroner [phone] with questions. INTERPRETING RADIOLOGIST: Nubia Aponte MD Electronically Signed: Dec 17, 2019 01:38AM EDT Referring Physician: LUIS FERNANDO POOLE Patient Name: ZACK WALTERS THIS IS A PRELIMINARY REPORT DATE OF SERVICE: 2019-12-17 00:12:11 IMAGES: 38 EXAM: VENOUS DUPLEX BILATERAL No evidence for DVT bilateral lower extremities. THIS DOCUMENT HAS BEEN ELECTRONICALLY SIGNED Nubia Aponte M.D. 12/17/2019 01:42 EST Lashawn Please call Imaging Coroner [phone] with questions. INTERPRETING RADIOLOGIST: Nubia Aponte MD Electronically Signed: Dec 17, 2019 01:43AM EDT Report and findings reviewed with patient; follow up with pmd urged DC home Discharge - Discharge Information Problems reviewed: Yes Clinical Impression/Diagnosis: Dizziness Condition: Stable Disposition: HOME - Admission No - Follow up/Referral Referrals: Rayo Yanes [Primary Care Provider] - - Patient Discharge Instructions Additional Instructions: You were provided copies of the CT and Ultrasound reports. We reviewed findings that should be brought to your Primary Care Doctor's attention. Follow up with your Primary Care Doctor in the next 10 days for your symptoms. Return to the Emergency Department if you experience new or worsening symptoms. - Post Discharge Activity
--- NOTE | 2019-12-17 09:28 | EKG ---
Test Reason : Blood Pressure : / mmHG Vent. Rate : 068 BPM Atrial Rate : 068 BPM P-R Int : 172 ms QRS Dur : 102 ms QT Int : 424 ms P-R-T Axes : 053 039 033 degrees QTc Int : 450 ms NORMAL SINUS RHYTHM CANNOT RULE OUT ANTERIOR INFARCT , AGE UNDETERMINED ABNORMAL ECG WHEN COMPARED WITH ECG OF 22-MAY-2018 06:28, PREMATURE ATRIAL COMPLEXES ARE NO LONGER PRESENT VENT. RATE HAS DECREASED BY 43 BPM QRS DURATION HAS INCREASED Confirmed by Selina Serrano ([id number]) on 12/17/2019 9:28:24 AM Referred By: Confirmed By:Selina Serrano
== END 2019-12-17 02:32 | disposition home or self-care (01) ==
LOC: JER 20:17
DX: R42 Dizziness and giddiness (principal)
CPT/HCPCS: 36415; 71045-TC-FY; 71275-TC; 80053; 82550; 84484; 84703; 85025; 85379; 85610; 85730; 93005; 93010; 93970-TC; 99285-25; Q9967